=== PATIENT | female | born 1955 | race Caucasian/White ===

== ENCOUNTER → 2020-01-18 07:41 | Outpatient (CLI) | payer OTHER, SELFPAY ==
[2020-01-18 08:09] LABS: Add Manual Diff / Slide Review NO; Basophils Absolute Auto 0 /uL (0-100); Basophils Percent Auto 0.5 % (0-2); Eosinophils Absolute Auto 100 /uL (0-450); Eosinophils Percent Auto 1.5 % (2-4); Hematocrit 46.2 % (36-46); Hemoglobin 15.7 g/dL (12.0-16.0); Lymphocytes Absolute Auto 2300 /uL (1100-4500); Lymphocytes Percent Auto 31.8 % (25-40); Mean Corpuscular Hemoglobin 32.9 PG (26-34); Mean Corpuscular Volume 96.8 fL (80-100); Monocytes Absolute Auto 600 /uL (0-900); Monocytes Percent Auto 7.6 % (3-14); Neutrophils Absolute Auto 4300 /uL (1500-7000); Neutrophils Percent Auto 58.6 % (50-75); Platelet Count 265 X10^3/uL (150-400); Red Blood Cell Count 4.77 X10^6/uL (4.0-5.2); Red Cell Distribution Width 13.1 % (11.6-14.8); White Blood Cell Count 7.3 X10^3/uL (4.5-11.0)
[2020-01-18 08:24] LABS: Alanine Aminotransferase 72 IU/L (<35); Albumin 4.7 g/dL (3.5-5.0); Albumin Globulin Ratio 1.7 (1.0-2.8); Alkaline Phosphatase 68 U/L (38-126); Aspartate Aminotransferase 46 IU/L (14-36); BUN Creatinine Ratio 23.4 (6-22); Bilirubin Total 0.6 mg/dL (0.2-1.3); Blood Urea Nitrogen 25 mg/dL (7-17); Carbon Dioxide 35 mmol/L (22-32); Chloride 96 mmol/L (98-107); Cholesterol 237 mg/dL (140-199); Globulin 2.8 g/dL (1.7-4.1); Glucose 103 mg/dL (80-110); HDL Cholesterol 92 mg/dL (40-60); LDL Cholesterol Calculated 120 mg/dL (<100); Potassium 3.5 mmol/L (3.4-5.1); Sodium 138 mmol/L (137-145); Total Protein 7.5 g/dL (6.3-8.2); Triglycerides 123 mg/dL (35-150)
[2020-01-18 08:40] LABS: Free T3, Triiodothyronine Free 3.58 pg/mL (2.77-5.27); Free T4, Direct Thyroxine 1.06 ng/dL (0.78-2.19)
[2020-01-18 08:42] LABS: Vitamin D 25 Hydroxy (D3) 38.1 ng/mL (30.0-100.0)
[2020-01-18 08:53] LABS: Thyroid Stimulating Hormone 4.25 uIU/mL (0.47-4.68)
[2020-01-18 09:13] LABS: Vitamin B12 900 pg/mL (239-931)
== END ==
PROVIDERS: Family Provider Family Medicine; PCP Family Medicine; Referring Provider Family Medicine; Visit Provider Family Medicine
DX: Z12.31 Encounter for screening mammogram for malignant neoplasm of breast (principal); Z13.220 Encounter for screening for lipoid disorders; E04.9 Nontoxic goiter, unspecified; E55.9 Vitamin D deficiency, unspecified; F32.9 Major depressive disorder, single episode, unspecified; R53.83 Other fatigue; R94.6 Abnormal results of thyroid function studies
CPT/HCPCS: 36415; 80053; 80061; 82306; 82607; 84439; 84443; 84481; 85025

== ENCOUNTER → 2020-04-18 08:58 | Outpatient (CLI) | payer OTHER, SELFPAY ==
[2020-04-18 10:40] LABS: Alanine Aminotransferase 30 IU/L (<35); Albumin 3.9 g/dL (3.5-5.0); Albumin Globulin Ratio 1.9 (1.0-2.8); Alkaline Phosphatase 48 U/L (38-126); Aspartate Aminotransferase 27 IU/L (14-36); BUN Creatinine Ratio 23.2 (6-22); Bilirubin Total 0.7 mg/dL (0.2-1.3); Blood Urea Nitrogen 19 mg/dL (7-17); Calcium 9.2 mg/dL (8.4-10.2); Carbon Dioxide 30 mmol/L (22-32); Chloride 101 mmol/L (98-107); Cholesterol 173 mg/dL (140-199); Estimated Glomerular Filt Rate > 60.0 mL/min (>60); Globulin 2.1 g/dL (1.7-4.1); Glucose 83 mg/dL (80-110); HDL Cholesterol 69 mg/dL (40-60); HEMOLYSIS < 15 (0-50); LDL Cholesterol Calculated 86 mg/dL (<100); Potassium 4.3 mmol/L (3.4-5.1); Sodium 136 mmol/L (137-145); Triglycerides 91 mg/dL (35-150)
== END ==
PROVIDERS: Family Provider Family Medicine; PCP Family Medicine; Referring Provider Family Medicine; Visit Provider Family Medicine
DX: E78.5 Hyperlipidemia, unspecified (principal); I10 Essential (primary) hypertension; N18.3 Chronic kidney disease, stage 3 (moderate); R74.0 Nonspecific elevation of levels of transaminase and lactic acid dehydrogenase [LDH]
CPT/HCPCS: 36415; 80053; 80061

== ENCOUNTER → 2020-05-10 15:43 | Outpatient (CLI) | payer OTHER, SELFPAY ==
--- NOTE | 2020-05-10 15:44 | DI.RAD.S_ITS ---
PROCEDURE: XR CHEST 2V INDICATIONS: pre-op testing TECHNIQUE: 2 views of the chest were acquired. COMPARISON: [facility], , CHEST 2 VIEW, 12/05/2014, 16:55. FINDINGS: Surgical changes and devices: None. Lungs and pleura: Lungs are clear. No pleural effusions or pneumothorax. Mediastinum: Mediastinal contours are normal. Heart size is normal. Bones and chest wall: No suspicious bony abnormalities. Soft tissues appear unremarkable. IMPRESSION: Normal for age, no contraindication to operative intervention is found. Dictated by: Brenton Mendoza M.D. on 05/10/2020 at 16:26 Approved by: Brenton Mendoza M.D. on 05/10/2020 at 16:31
== END ==
PROVIDERS: Family Provider Family Medicine; PCP Family Medicine; Referring Provider Nurse Practitioner Family; Visit Provider Nurse Practitioner Family
DX: Z01.818 Encounter for other preprocedural examination (principal)
CPT/HCPCS: 71046; 81001

== ENCOUNTER → 2020-05-10 16:07 | Outpatient (CLI) | payer OTHER, SELFPAY ==
[2020-05-10 18:56] LABS: Bacteria Urine None Seen
[2020-05-10 19:01] LABS: Appearance Urine UA CLOUDY; Bilirubin Urine UA NEGATIVE (NEGATIVE); Color Urine UA YELLOW; Glucose Urine UA NEGATIVE (Negative); Ketones Urine UA TRACE (NEGATIVE); Leukocyte Esterase Urine UA NEGATIVE (NEGATIVE); Nitrite Urine UA NEGATIVE (Negative); Occult Blood Urine UA NEGATIVE (Negative); Protein Urine UA NEGATIVE (Negative); Specific Gravity Urine UA 1.025 (1.000-1.035); Urobilinogen Urine UA 0.2 E.U./dL (0.2)
[2020-05-10 19:11] LABS: RBC Urine 0-1/HPF (0-5/HPF); Squamous Epithelial Cell Urine 5-10 /HPF (0-5/HPF); Transitional Epi Cells Urine 1-5/HPF (0-5/HPF); WBC Urine 0-1/HPF (0-5/HPF)
[2020-05-10 19:37] LABS: Culture Indicated Urine Cult Not Indicated
== END ==
PROVIDERS: Family Provider Family Medicine; PCP Family Medicine; Visit Provider Nurse Practitioner Family
DX: Z01.818 Encounter for other preprocedural examination (principal)
CPT/HCPCS: 81001

== ENCOUNTER → 2020-05-15 10:39 | Outpatient (CLI) | payer OTHER, SELFPAY ==
[2020-05-15 12:25] LABS: Hematocrit 44.3 % (36-46); Hemoglobin 15.4 g/dL (12.0-16.0); Mean Corpuscular HGB Conc 34.8 % (30-36); Mean Corpuscular Hemoglobin 34.6 PG (26-34); Mean Corpuscular Volume 99.3 fL (80-100); Platelet Count 252 X10^3/uL (150-400); Red Blood Cell Count 4.46 X10^6/uL (4.0-5.2); Red Cell Distribution Width 12.6 % (11.6-14.8); White Blood Cell Count 5.5 X10^3/uL (4.5-11.0)
[2020-05-15 12:45] LABS: Alanine Aminotransferase 49 IU/L (<35); Albumin 4.4 g/dL (3.5-5.0); Albumin Globulin Ratio 1.7 (1.0-2.8); Alkaline Phosphatase 58 U/L (38-126); Aspartate Aminotransferase 45 IU/L (14-36); BUN Creatinine Ratio 30.7 (6-22); Bilirubin Total 0.7 mg/dL (0.2-1.3); Blood Urea Nitrogen 27 mg/dL (7-17); Calcium 9.4 mg/dL (8.4-10.2); Carbon Dioxide 36 mmol/L (22-32); Chloride 101 mmol/L (98-107); Estimated Glomerular Filt Rate > 60.0 mL/min (>60); Globulin 2.6 g/dL (1.7-4.1); Glucose 88 mg/dL (80-110); HEMOLYSIS 20 (0-50); Sodium 139 mmol/L (137-145)
== END ==
PROVIDERS: Family Provider Family Medicine; PCP Family Medicine; Referring Provider Nurse Practitioner Family; Visit Provider Nurse Practitioner Family
DX: Z01.818 Encounter for other preprocedural examination (principal); R94.31 Abnormal electrocardiogram [ECG] [EKG]
CPT/HCPCS: 36415; 80053; 85027

== ENCOUNTER → 2020-05-17 06:48 | Outpatient (CLI) | payer OTHER, SELFPAY ==
--- NOTE | 2020-05-17 07:07 | DI.ECHO.S_ITS ---
Echocardiogram Report + + :Name: PATTI RUBI Study Date: 05/17/2020 Height: 65 in : :[facility] Weight: 175 lb : : Gender: Female BSA: 1.9 m2 : :: 1955 Age: 64 yrs BP: 142/58 mmHg: :Reason For Study: Possible Anterior Ischemia, T-Wave Inversion : :Ordering Physician: KEYLA, : :SHAYY Performed By: Raquel Nova : :Referring: SHAYY RAMIRES : + + Interpretation Summary This was a technically difficult study requiring Definity echocontrast. Echocontrast was c/b back pain as a side effect to echocontrast., HR was 55-62 bpm during exam. Normal LV size and wall thickness. There is subtle septal and mid-inferior hypokinesis. EF is 55-60%. Normal chamber sizes. Mild AI. Mild MAC with mild associated MR. No prior study available for comparison. Procedure: A two-dimensional transthoracic echocardiogram with color flow and Doppler was performed. A contrast injection of Definity was performed to improve assessment of LV function. Patient developed severe back pain which radiated to left arm after the use of Definity contrast. Rapid response was called and patient was treated by the Emergency Department. Contrast was injected into an intravenous site in the left arm. The patient was in sinus bradycardia with heart rates between 51-60 bpm during the exam. Left Ventricle: The left ventricle is normal in size and wall thickness. The ejection fraction is estimated to be 55-60%. Diastolic function could not be accurately assessed due to contradictory data. Right Ventricle: The right ventricle is normal in size and function. Atria: Both atria are normal in size. There is no Doppler evidence for an interatrial shunt. Mitral Valve: There is mild mitral annular calcification. The mitral valve leaflets appear mildly thickened, but open well. There is mild mitral regurgitation. Aortic Valve: The aortic valve is trileaflet. The aortic valve opens well. There is no aortic valve stenosis. There is mild to moderate aortic regurgitation. Tricuspid Valve: The tricuspid valve is normal in structure and function. There is mild tricuspid regurgitation. Pulmonary artery pressures cannot be estimated because of the lack of a measurable TR jet velocity but the IVC suggests a CVP of around 3 mmHg. Pulmonic Valve: The pulmonic valve is normal in structure and function. There is trace pulmonic regurgitation. Great Vessels: The aortic root is normal size. The ascending aorta is mildly enlarged. The IVC is of normal diameter and collapses greater than 50% with a sniff. This suggests a low right atrial pressure of 3 mm Hg. Pericardium/ Pleura There is no pericardial effusion. There is no pleural effusion. MMode/2D Measurements & Calculations LVIDd: 5.2 cm LVOT diam: 2.0 cm LVIDs: 3.8 cm Ao root diam: 3.2 cm FS: 28.0 % asc Aorta Diam: 3.5 cm EPSS: 1.5 cm Ao Arch Diam (Prox Trans): 3.1 cm IVSd: 0.84 cm LVPWd: 0.76 cm LV serrato. diameter/BSA (cm/m^2): 2.8 LV sys. diameter/BSA (cm/m^2): 2.0 LA A2 area: 17.9 cm2 RA long axis: 4.2 cm LA A4 area: 18.7 cm2 RA area: 14.7 cm2 LA length (vol): 5.4 cm RA vol: 43.6 ml LA vol: 52.9 ml RA : 23.3 ml/m2 LA vol index: 28.3 ml/m2 IVC diam: 1.6 cm RVD1 (basal): 3.4 cm TAPSE: 1.8 cm Doppler Measurements & Calculations Ao V2 max: 128.8 cm/sec LVOT Max David: 73.2 cm/sec Ao V2 mean: 86.2 cm/sec LV V1 max P.1 mmHg Ao max P.6 mmHg LV V1 VTI: 17.9 cm Ao mean P.4 mmHg DALLAS(I,D): 1.8 cm2 Ao V2 VTI: 32.5 cm DALLAS(V,D): 1.8 cm2 sev ratio: 0.55 DALLAS indexed to BSA (cm^2/m^2): 0.95 AI P1/2t: 629.9 msec AI dec slope: 212.9 cm/sec2 MV E max david: 74.9 cm/sec PA V2 max: 70.1 cm/sec MV A max david: 105.5 cm/sec PA V2 mean: 47.5 cm/sec MV E/A: 0.71 PA mean P.0 mmHg Med Peak E' David: 4.4 cm/sec PA pr(Accel): 39.6 mmHg E/E' med: 16.9 Lat Peak E' David: 5.5 cm/sec E/E' lat: 13.7 E/e' average: 15.3 MV dec time: 0.33 sec SV(LVOT): 57.7 ml Electronically signed by: Xenia Monroe M.D. on [place] Physician:05/17/2020 05:52 PM
== END ==
PROVIDERS: Family Provider Family Medicine; PCP Family Medicine; Referring Provider Nurse Practitioner Family; Visit Provider Nurse Practitioner Family
DX: I08.3 Combined rheumatic disorders of mitral, aortic and tricuspid valves (principal); I77.89 Other specified disorders of arteries and arterioles; R94.31 Abnormal electrocardiogram [ECG] [EKG]
CPT/HCPCS: 93010; C8929; Q9957

== ENCOUNTER 2020-05-17 08:25 | Emergency (ER) | payer OTHER, SELFPAY ==
[2020-05-17] VITALS (11 sets, daily range): BP systolic 123–180; BP diastolic 64–88; PULSE 50–62; RESP 10–23; TEMP 35.7; O2SAT 97–99; BMI 29.1
--- NOTE | 2020-05-17 08:50 | ED_ITS ---
HPI - Allergic Reaction General Chief complaint: Allergic Reaction Stated complaint: allergic reaction Time Seen by Provider: 05/17/20 08:33 Source: patient, family and other Mode of arrival: Wheelchair Limitations: no limitations History of Present Illness HPI narrative: Patient in radiology department having outpatient echocardiogram with infusion of definity compound. Had immediate back pain radiating to the l eft arm. No syncope. No new numbness tingling weakness no diaphoresis no dyspnea. Symptoms resolved immediately with Benadryl. This is 1 of the common adverse reactions is back/renal pain, however reactions like this may indicate underlying unstable cardiopulmonary conditions. Pamphlet about definity available from echocardiogram department. Patient was here for medical clearance for foot surgery in 2 weeks. Family physician had provided echocardiogram testing today and then stress test next week. Will contact pharmacy department that dispenses this medication to the echocardiogram dep artment as far as half-life of common bile. It is a lipid. Patient family history significant for coronary disease. Currently patient has no complaints. Valet Attendant has been paged to review for this compound/chemical Related Data Home Medications Medication Instructions Recorded Confirmed meloxicam 15 mg tablet 15 mg PO DAILY PRN 11/16/19 05/10/20 omeprazole 20 mg capsule,delayed 20 mg PO DAILY 11/16/19 05/10/20 release thyroid (pork) 30 mg tablet 30 mg PO DAILY 11/16/19 05/10/20 Previous Rx's Medication Instructions Recorded estradiol 1 gram VAG DAILY #42.5 gram 11/16/19 handicap placard #1 ea 01/03/20 duloxetine 30 mg capsule,delayed 30 mg PO DAILY #90 cap 01/21/20 release sprinkle estradiol 0.05 mg/24 hr weekly 1 patch TRANSDERMAL QWEEK #4 each 01/21/20 transdermal patch venlafaxine 100 mg tablet 100 mg PO DAILY #90 tab 01/21/20 bisoprolol fumarate 10 mg tablet 10 mg PO BID #60 tab 02/01/20 lorazepam 1 mg tablet 1 mg PO DAILY PRN #30 tab 03/13/20 indapamide 2.5 mg tablet 2.5 mg PO QAM #90 tab 04/19/20 trazodone 100 mg tablet 100 mg PO BEDTIME PRN #90 tab 04/19/20 Allergies Allergy/AdvReac Type Severity Reaction Status Date / Time doxycycline [DOXYCYCLINE] Allergy Severe ANAPHYLAXIS Verified 05/17/20 10:51 losartan [LOSARTAN] Allergy Severe ANAPHYLAXIS Verified 05/17/20 10:51 diclofenac [DICLOFENAC] Allergy Mild RASH Verified 05/17/20 10:51 hydrocodone [HYDROCODONE] Allergy Mild RASH Verified 05/17/20 10:51 morphine [MORPHINE] Allergy Mild ITCHING Verified 05/17/20 10:51 perflutren [From Definity] Allergy Unknown Cramping Verified 05/17/20 10:51 of the Muscles Review of Systems Review of Systems Narrative: GENERAL: Denies chills, fatigue, malaise, fever, sweats. HEENT: Denies sinus pain, ear pain, sore throat, difficulty swallowing, dizziness. RESPIRATORY: Denies dyspnea, cough, wheezing, hemoptysis, sputum. CARDIOVASCULAR: Denies chest pain, palpitations, orthopnea, edema, GASTROINTESTINAL: Denies nausea, vomiting, abdominal pain, diarrhea, constipation, melena. : Denies dysuria, frequency, incontinence, hematuria, urinary retention. MUSCULOSKELETAL: denies weakness, joint pain, or bony pain. Complains of back muscular spasm SKIN: Denies rash, skin lesions, or other NEUROLOGIC: Denies weakness, headache, numbness, change in speech, confusion, seizures, incoordination. PSYCHIATRIC: No concerning psychosocial issues. ROS Unobtainable: All systems reviewed & are unremarkable except as noted in HPI and below Patient History Medical History Abnormal EKG (Acute) Anxiety (Chronic) Cardiac arrhythmia (Chronic) Cervical somatic dysfunction (Chronic) Chicken pox (Resolved ~1962) CKD (chronic kidney disease), stage III (Acute) Cranial somatic dysfunction (Chronic) Depression (Chronic 03/11/14) Endometriosis (Resolved) Fibroids (Resolved) Fibromyalgia (Chronic) Greater trochanteric bursitis of both hips (Acute) Heavy menstrual period (Resolved) Hot flashes due to menopause (Acute) Hyperlipidemia (Acute) Hypertension (Chronic ~2015) Iliotibial band syndrome, right leg (Acute) Infertility (Resolved) Insomnia disorder (Chronic) IT band syndrome (Acute) Measles (Resolved ~1963) Lauren's neuroma of left foot (Acute) Mumps (Resolved ~1969) Painful menstrual periods (Resolved) Pelvic somatic dysfunction (Chronic) Plantar fasciitis of left foot (Acute) Preoperative testing (Acute) Restless leg syndrome (Chronic ~2018) Sacroiliac joint stiffness (Acute) Segmental and somatic dysfunction of abdomen and other regions (Acute) Segmental and somatic dysfunction of lower extremity (Acute) Segmental and somatic dysfunction of lumbar region (Acute) Segmental and somatic dysfunction of rib cage (Acute) Segmental and somatic dysfunction of thoracic region (Acute) Somatic dysfunction of lower extremity (Acute) Somatic dysfunction of spine, sacral (Acute) Stiffness of neck (Acute) Transaminitis (Acute) Surgical History Anesthesia (Resolved) History of breast augmentation History of esophagogastroduodenoscopy (EGD) (08/04/15) History of tonsillectomy Status post biopsy (08/04/15) Status post vaginal hysterectomy (~2006) Family History Father CAD (coronary artery disease) Hyperlipidemia Hypertension Bowel obstruction Grandfather Diabetes mellitus Stroke Mother CVA (cerebral infarction) Hypertension Substance abuse Chronic mental illness History of heart disease Mental health problem Stroke Grandmother History of heart disease Sister Atrial fibrillation Social History Smoking Status: Never smoker Smoking Status: Never smoker alcohol intake frequency: 0-2 drinks per day Alcohol type: wine Substance Use Type: does not use Exam Narrative Exam Narrative: GENERAL: patient appears stated age. Well-nourished, well- developed patient, in no distress, not toxic HEAD: Atraumatic. Normocephalic. EYES: Pupils equal round and reactive. Extraocular motions intact. No scleral icterus. No injection or drainage. ENT: Nose without bleeding, purulent drainage. Throat without erythema, tonsillar hypertrophy or exudate. Airway patent. NECK: Trachea midline. Non tender CARDIOVASCULAR: Regular rate and rhythm without murmurs, gallops, or rubs. Strong bilateral carotid/radial and posterior tibial pulses. RESPIRATORY: Clear to auscultation. Breath sounds equal bilaterally. No wheezes, rales, or rhonchi. GASTROINTESTINAL: Abdomen soft, non-tender, nondistended. EXTREMITIES: No edema or joint tenderness. BACK: Nontender without deformity or crepitance. No flank tenderness. NEURO: AOx3. Clear speech no facial droop light touch intact to bilateral face and hands and legs. 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 SKIN: No rash or erythema of visible areas, no diaphoresis, skin is dry warm soft and pink PSYCH: Not anxious, is cooperative Initial Vital Signs Initial Vital Signs: Vital Signs Temperature 96.2 F L 05/17/20 08:34 Pulse Rate 54 L 05/17/20 08:34 Respiratory Rate 16 05/17/20 08:34 Blood Pressure 177/84 H 05/17/20 08:34 Pulse Oximetry 98 05/17/20 08:34 Course Course Course Narrative: No new complaints since being transferred to the emergency department. Vital signs have improved. Remains pain free. Orders Ordered: ED Orders 05/17/20 12:05 Troponin & CK Cardiac Panel Stat Discontinued Medications Famotidine (Pepcid) 20 mg in 50 mls @ 200 mls/hr IV NOW ONE Stop: 05/17/20 09:01 Last Infusion: 05/17/20 09:20 Dose: 0 mls/hr Documented by: Admin: 05/17/20 09:05 Dose: 200 mls/hr Documented by: MARCELA Reevaluation(s) Reevaluation #1: No new complaints. Second troponin normal. Patient desires discharge home. No complications or new pains or complaints Time: 12:38 Consultations Consultation #1: All spoke with Pharmacy in patient at this hospital. The half- life is 1.3 minutes of definity. Completely gone in 5 minutes Time: 09:09 Consultation #2: s/w dr fry, online marketing specialist. Patient can be discharged home. Likely allergic reaction. Patient had no previous chest pain dyspnea before testing. No cardiopulmonary complaints prior to outpatient test. Patient has follow-up with stress test next week. Appropriate for discharge home. Time: 09:50 Consultation #3: Received call from Dr. Monroe, she has reviewed the echocardiogram portion that was completed. She has reviewed the EKGs faxed to her. She understands patient has already been discharged has recommended by online marketing specialist on-call Time: 17:44 Vital Signs Vital signs: Vital Signs - 8 hr 05/17/20 10:30 05/17/20 11:00 05/17/20 11:30 Pulse Rate 58 L 62 60 Respiratory Rate 11 L 17 13 Blood Pressure 129/68 133/64 128/72 Pulse Oximetry 05/17/20 12:00 05/17/20 12:16 Pulse Rate 59 L 60 Respiratory Rate 20 11 L Blood Pressure 123/66 143/76 H Pulse Oximetry 98 MDM - Allergic Reaction Lab Data Result diagrams: 05/17/20 08:20 05/17/20 08:20 Labs: Lab Results 05/17/20 05/17/20 05/17/20 Range/Units 08:20 08:20 08:20 WBC 4.7 (4.5-11.0) X10^3/uL RBC 4.48 (4.0-5.2) X10^6/uL Hgb 15.1 (12.0-16.0) g/dL Hct 43.9 (36-46) % MCV 98.1 (80-100) fL MCH 33.8 (26-34) PG MCHC 34.4 (30-36) % RDW 12.8 (11.6-14.8) % Plt Count 213 (150-400) X10^3/uL Neut % (Auto) 60.7 (50-75) % Lymph % (Auto) 31.9 (25-40) % Parke % (Auto) 4.3 (3-14) % Eos % (Auto) 1.2 L (2-4) % Baso % (Auto) 1.9 (0-2) % Neut # (Auto) 2900 (9897-8897) /uL Lymph # (Auto) 1500 (8360-3493) /uL Parke # (Auto) 200 (0-900) /uL Eos # (Auto) 100 (0-450) /uL Baso # (Auto) 100 (0-100) /uL PT 10.2 (10.1-12.7) SECONDS INR 0.9 (0.9-1.3) APTT 30 (26.4-36.2) SECONDS Sodium 135 L (137-145) mmol/L Potassium 3.6 (3.4-5.1) mmol/L Chloride 97 L (98-107) mmol/L Carbon Dioxide 32 (22-32) mmol/L BUN 18 H (7-17) mg/dL Creatinine 0.85 (0.52-1.04) mg/dL Estimated GFR > 60.0 (>60) mL/min BUN/Creatinine Ratio 21.2 (6-22) Glucose 95 (80-110) mg/dL Calcium 9.5 (8.4-10.2) mg/dL Total Bilirubin 0.6 (0.2-1.3) mg/dL AST 33 (14-36) IU/L ALT 39 H (<35) IU/L Alkaline Phosphatase 61 (38-126) U/L Total Creatine Kinase (30-135) U/L CK-MB (CK-2) CK-MB (CK-2) Rel Index Troponin I < 0.012 (0.01-0.034) ng/mL Total Protein 6.9 (6.3-8.2) g/dL Albumin 4.4 (3.5-5.0) g/dL Globulin 2.5 (1.7-4.1) g/dL Albumin/Globulin Ratio 1.8 (1.0-2.8) 07/15/20 Range/Units 12:05 WBC (4.5-11.0) X10^3/uL RBC (4.0-5.2) X10^6/uL Hgb (12.0-16.0) g/dL Hct (36-46) % MCV (80-100) fL MCH (26-34) PG MCHC (30-36) % RDW (11.6-14.8) % Plt Count (150-400) X10^3/uL Neut % (Auto) (50-75) % Lymph % (Auto) (25-40) % Parke % (Auto) (3-14) % Eos % (Auto) (2-4) % Baso % (Auto) (0-2) % Neut # (Auto) (4141-9470) /uL Lymph # (Auto) (5083-0269) /uL Parke # (Auto) (0-900) /uL Eos # (Auto) (0-450) /uL Baso # (Auto) (0-100) /uL PT (10.1-12.7) SECONDS INR (0.9-1.3) APTT (26.4-36.2) SECONDS Sodium (137-145) mmol/L Potassium (3.4-5.1) mmol/L Chloride (98-107) mmol/L Carbon Dioxide (22-32) mmol/L BUN (7-17) mg/dL Creatinine (0.52-1.04) mg/dL Estimated GFR (>60) mL/min BUN/Creatinine Ratio (6-22) Glucose (80-110) mg/dL Calcium (8.4-10.2) mg/dL Total Bilirubin (0.2-1.3) mg/dL AST (14-36) IU/L ALT (<35) IU/L Alkaline Phosphatase (38-126) U/L Total Creatine Kinase 29 L (30-135) U/L CK-MB (CK-2) TNP CK-MB (CK-2) Rel Index TNP Troponin I < 0.012 (0.01-0.034) ng/mL Total Protein (6.3-8.2) g/dL Albumin (3.5-5.0) g/dL Globulin (1.7-4.1) g/dL Albumin/Globulin Ratio (1.0-2.8) Imaging Data Chest x-ray: Radiologist's Impression: [address] [address] XRay Report Signed Patient: Prisca Zavala LMR#: [id number] : 7Acct:[id number] Age/Sex: 64 / FDate of Service: 05/17/20 Loc: ED Accession Number: [id number] Procedure: XR chest 1V Ordering Provider: Dallas Boss MD PROCEDURE: XR CHEST 1V INDICATIONS: chest pain TECHNIQUE: One view of the chest was acquired. COMPARISON: [facility], , XR CHEST 2V, 05/10/2020, 15:38. FINDINGS: Surgical changes and devices: None. Lungs and pleura: Lungs are clear. No pleural effusions or pneumothorax. Mediastinum: Mediastinal contours appear normal. Heart size is normal. Bones and chest wall: No suspicious bony lesions. Overlying soft tissues appear unremarkable. IMPRESSION: No evidence acute pulmonary process. Dictated by: Silvestre Delcid M.D. on 05/17/2020 at 9:15 Approved by: Silvestre Delcid M.D. on 05/17/2020 at 9:15 ECG Data Attestation: I personally reviewed and interpreted this ECG as follows: Interpretation: Sinus bradycardia no ST elevation ventricular rate 52 MDM Narrative Medical decision making narrative: Appropriate for discharge home. Reviewed patient case with online marketing specialist. Likely allergic reaction. No recent chest pain or dyspnea or cardio complaints prior to outpatient testing. Patient has outpatient stress test next week. No continue allergic medications indicated. Definity compound has very short half-life less than 1.3 minutes. Out of system within 5 minutes Symptoms likely not aortic dissection. No syncope. No diaphoresis. Strong pulses. Left arm discomfort may have been just from the spasming affect of the back. At time of discharge feels small amount of back spasm but not nearly so painful as onset. No neuro complaints on time of discharge. Discharge Plan Departure Patient Disposition: Home Clinical Impression: Allergic reaction caused by a drug Qualifiers: Encounter type: initial encounter Qualified Code(s): T78.40XA - Allergy, unspecified, initial encounter Discharge Date/Time: 05/17/20 12:51 Instructions: DI for Adverse Drug Reaction -- Allergic Activity Restrictions/Additional Instructions: Be sure to inform your family doctor your allergy to this chemical compounds/drug use this morning called [employer]. See your family doctor before your stress test next week. Return if worse or if any questions or concerns. Prescriptions: No Action (DME) handicap placard Qty: 1 RF: 0 estradiol 0.05 mg/24 hr patch weekly 1 patch transdermal QWEEK Qty: 4 RF: 11 bisoprolol fumarate 10 mg tablet 10 mg PO BID Qty: 60 RF: 5 lorazepam 1 mg tablet 1 mg PO DAILY PRN (Reason: anxiety) Qty: 30 RF: 0 indapamide 2.5 mg tablet 2.5 mg PO QAM Qty: 90 RF: 0 trazodone 100 mg tablet 100 mg PO BEDTIME PRN (Reason: insomnia) Qty: 90 RF: 0 venlafaxine 100 mg tablet 100 mg PO DAILY Qty: 90 RF: 1 duloxetine 30 mg capsule, delayed rel sprinkle 30 mg PO DAILY Qty: 90 RF: 1 thyroid (pork) [[place] Thyroid] 30 mg tablet 30 mg PO DAILY RF: 0 omeprazole 20 mg capsule,delayed release(DR/EC) 20 mg PO DAILY RF: 0 meloxicam 15 mg tablet 15 mg PO DAILY PRNRF: 0 estradiol [Estrace] 0.01 % (0.1 mg/gram) cream 1 gram VAG DAILY Qty: 42.5 RF: 1 Referrals: Emigdio Mares DO [Primary Care Provider] -
[2020-05-17 09:00] LABS: Add Manual Diff / Slide Review NO; Basophils Absolute Auto 100 /uL (0-100); Basophils Percent Auto 1.9 % (0-2); Eosinophils Absolute Auto 100 /uL (0-450); Eosinophils Percent Auto 1.2 % (2-4); Hematocrit 43.9 % (36-46); Hemoglobin 15.1 g/dL (12.0-16.0); Lymphocytes Absolute Auto 1500 /uL (1100-4500); Lymphocytes Percent Auto 31.9 % (25-40); Mean Corpuscular HGB Conc 34.4 % (30-36); Mean Corpuscular Hemoglobin 33.8 PG (26-34); Mean Corpuscular Volume 98.1 fL (80-100); Monocytes Absolute Auto 200 /uL (0-900); Monocytes Percent Auto 4.3 % (3-14); Neutrophils Absolute Auto 2900 /uL (1500-7000); Neutrophils Percent Auto 60.7 % (50-75); Platelet Count 213 X10^3/uL (150-400); Red Blood Cell Count 4.48 X10^6/uL (4.0-5.2); Red Cell Distribution Width 12.8 % (11.6-14.8); White Blood Cell Count 4.7 X10^3/uL (4.5-11.0)
[2020-05-17 09:02] LABS: INR 0.9 (0.9-1.3); Prothrombin Time 10.2 SECONDS (10.1-12.7)
[2020-05-17 09:05] LABS: PTT Partial Thromboplastin Tim 30 SECONDS (26.4-36.2)
[2020-05-17] MEDS: FAMOTIDINE 20 MG/50 ML PIGGYBACK 200 MG IV (09:05)
[2020-05-17 09:06] LABS: Albumin 4.4 g/dL (3.5-5.0); Albumin Globulin Ratio 1.8 (1.0-2.8); Alkaline Phosphatase 61 U/L (38-126); Aspartate Aminotransferase 33 IU/L (14-36); BUN Creatinine Ratio 21.2 (6-22); Bilirubin Total 0.6 mg/dL (0.2-1.3); Blood Urea Nitrogen 18 mg/dL (7-17); Calcium 9.5 mg/dL (8.4-10.2); Carbon Dioxide 32 mmol/L (22-32); Chloride 97 mmol/L (98-107); Estimated Glomerular Filt Rate > 60.0 mL/min (>60); Globulin 2.5 g/dL (1.7-4.1); Glucose 95 mg/dL (80-110); HEMOLYSIS < 15 (0-50); Potassium 3.6 mmol/L (3.4-5.1); Sodium 135 mmol/L (137-145); Total Protein 6.9 g/dL (6.3-8.2)
[2020-05-17 09:18] LABS: Troponin I < 0.012 ng/mL (0.01-0.034)
[2020-05-17 12:26] LABS: Creatine Kinase 29 U/L (30-135)
[2020-05-17 12:39] LABS: Troponin I < 0.012 ng/mL (0.01-0.034)
[2020-05-17 15:06] LABS: Alanine Aminotransferase 39 IU/L (<35)
== END 2020-05-17 12:51 | disposition home or self-care (01) ==
PROVIDERS: Emergency Provider Emergency Medicine; Family Provider Family Medicine; PCP Family Medicine
DX: T78.40XA Allergy, unspecified, initial encounter (principal); R07.9 Chest pain, unspecified; I08.3 Combined rheumatic disorders of mitral, aortic and tricuspid valves; I77.89 Other specified disorders of arteries and arterioles; R94.31 Abnormal electrocardiogram [ECG] [EKG]
CPT/HCPCS: 36415; 71045; 80053; 82550; 84484; 85025; 85610; 85730; 93005; 96374; 99284; C8929; J1200; Q9957

== ENCOUNTER → 2020-05-18 11:44 | Outpatient (CLI) | payer OTHER, SELFPAY | PROVIDERS: Family Provider Family Medicine; PCP Family Medicine; Visit Provider Nurse Practitioner Family | DX: N89.8 Other specified noninflammatory disorders of vagina (principal) | CPT/HCPCS: 87210 ==

== ENCOUNTER → 2020-05-20 11:29 | Outpatient (CLI) | payer OTHER, SELFPAY ==
[2020-05-21 22:55] LABS: COVID19 Sendout Not Detected (Not Detect)
== END ==
PROVIDERS: Family Provider Family Medicine; PCP Family Medicine; Visit Provider Physician Assistant
DX: Z01.812 Encounter for preprocedural laboratory examination (principal)
CPT/HCPCS: 87635

== ENCOUNTER → 2020-05-23 09:31 | Outpatient (CLI) | payer OTHER, SELFPAY ==
--- NOTE | 2020-05-23 | DI.NM.S_ITS ---
PROCEDURE: NM CHHAYA PERF SPECT R&S PHARM Rest and pharmacological stress myocardial perfusion SPECT with gated imaging and ejection fraction RADIOPHARMACEUTICAL: 12.3 mCi Tc-99m tetrafosmin IV at rest and 26.8 mCi Tc-99m tetrafosmin IV at peak effect of pharmacological stress. [id number] was performed. INDICATIONS: Abnormal electrocardiogram [ECG] [EKG] TECHNIQUE: Radiopharmaceutical was injected at peak stress test, and also at rest. SPECT images were obtained. SPECT myocardial perfusion images were displayed in short axis, horizontal long axis, and vertical long axis views. Gated images were reviewed using Roam[employer] software. COMPARISON: None. CARDIAC STRESS: A pharmacologic stress test was performed under the supervision of an attending staff, using an infusion of lexiscan 0.4mg IV X1. Hemodynamic data: There is normal blood pressure and heart rate response to pharmacologic stress. Symptoms: The patient denied anginal chest pain. Aminophylline: none EKG: Resting ECG shows sinus rhythm and non-specific T wave changes. No diagnostic changes of ischemia with lexiscan; rare PVCs at rest. FINDINGS: Raw data: There is good myocardial uptake of radiotracer. No significant motion artifacts. Yboy-eu-mchbm ratio is 0.22 (normal is less than 0.38 for tetrafosmin tracer). Left ventricle function: Gated images demonstrate normal left ventricular wall thickening. No segmental wall motion abnormalities. No transient ischemic dilation; TID is 0.93 (normal less than 1.3). Left ventricle resting end diastolic volume is 120 mL. Left ventricle stress ejection fraction is 71%; normal range is above 45%. Myocardial perfusion: There is a moderately intense fixed defect in the anterior wall and the apex at rest that improves in the anterior wall post stress but persists in the apex, suggesting prior infarct but no ischemia. Prone images make defect worse. Of note, the perfusion defects can be artifacts as the patient has breast implants per report.. IMPRESSION: Abnormal nuclear stress test consistent with possible prior infarction. No ischemia. 1) There is a moderately intense fixed defect in the anterior wall and the apex at rest that improves in the anterior wall post stress but persists in the apex, suggesting prior infarct but no ischemia. Prone images make defect worse. Of note, the perfusion defects can be artifacts as the patient has breast implants per report. 2) Normal left ventricular size, wall motion, and systolic function (EF post stress 71%). 3) No ECG evidence of ischemia. 4) No angina during the study. 5) No prior echo available for comparison. Dictated by: Regulo Jaeger MD on 05/23/2020 at 17:37 Approved by: Regulo Jaeger MD on 05/23/2020 at 17:41
--- NOTE | 2020-05-23 14:45 | PM.TREADMILL ---
Cardiac Stress Test Report Referral & Results Date Patient Seen: 05/23/20 Requesting provider: Viri Claudio Rest ECG: Unremarkable Procedure Note: After both written and verbal informed consent the patient had an IV started by the diagnostic imaging RN and then was hooked up to the treadmill monitoring system. The patient was placed on the treadmill at 1 mile an hour with no elevation and was then injected with the Bree scan material. The Cardiolite was then immediately administered. The patient spent an additional 2-3 minutes on the treadmill before being returned to the [facility] in the supine position. The patient had a normal response to all infused materials. Impression: See perfusion imaging report for details regarding possible ischemia Please note: Actual ECG tracings can be found in the PACS system.
== END ==
PROVIDERS: Family Provider Family Medicine; PCP Family Medicine; Referring Provider Nurse Practitioner Family; Visit Provider Nurse Practitioner Family
DX: R94.31 Abnormal electrocardiogram [ECG] [EKG] (principal)
CPT/HCPCS: 78452; 93016; 93017; 93018; A9502; J2785

== ENCOUNTER → 2020-06-28 10:59 | Outpatient (CLI) | payer OTHER, SELFPAY ==
--- NOTE | 2020-06-28 11:13 | DI.MG.S_ITS ---
Patient Name: PATTI RUBI date: 1955 Sex: F Attending Physician: Vishnu Indications: Date: 06/28/2020 11:03 At the request of: MAXIM AGUIRRE Procedure: MM screening mammo implant BI BILATERAL DIGITAL SCREENING MAMMOGRAM 3D/2D WITH CAD WITH AUGMENTATION: 06/28/2020 CLINICAL: Routine screening. Comparison is made to exams dated: 08/03/2015 mammogram, 02/03/2014 mammogram - [facility], and 11/21/2011 mammogram - [facility]. The tissue of both breasts is heterogeneously dense. This may lower the sensitivity of mammography. Current study was also evaluated with a Computer Aided Detection (CAD) system. Bilateral breast implants are stable. No significant masses, calcifications, or other findings are seen in either breast. There has been no significant interval change. IMPRESSION: NEGATIVE There is no mammographic evidence of malignancy. A 1 year screening mammogram is recommended. This exam was interpreted at Station ID: [id number]. NOTE: For mammograms, a report in lay terms will be sent to the patient. Approximately 15% of breast malignancies will not be visualized mammographically. In the management of a palpable breast mass, a negative mammogram must not discourage biopsy of a clinically suspicious lesion. Electronically Signed By: Michael faye/dottie:06/28/2020 11:54:42 letter sent: Normal Exam ACR BI-RADS Category 1: Negative 3341F Continued Report - Page 2 of 2 Patient Name: PATTI RUBI date: 1955 Sex: F Attending Physician: Vishnu Indications: Date: 06/28/2020 11:03 At the request of: MAXIM AGUIRRE Procedure: MM screening mammo implant BI
== END ==
PROVIDERS: Family Provider Family Medicine; PCP Family Medicine; Referring Provider Family Medicine; Visit Provider Family Medicine
DX: Z12.31 Encounter for screening mammogram for malignant neoplasm of breast (principal)
CPT/HCPCS: 77063; 77067

== ENCOUNTER → 2020-07-27 15:06 | Outpatient (CLI) | payer OTHER, SELFPAY ==
--- NOTE | 2020-07-27 15:07 | DI.RAD.S_ITS ---
PROCEDURE: XR HIP W PEL IF DONE RT 2V INDICATIONS: PAIN OF RIGHT HIP TECHNIQUE: AP pelvis with lateral view(s) of the right hip(s). COMPARISON: None. FINDINGS: Bones: Subchondral cystic changes are present at the right acetabulum. No deformity of the femoral head. No fracture or dislocation. Soft tissues: The visualized bowel gas pattern is normal. No suspicious soft tissue calcifications. IMPRESSION: Right hip osteoarthritis. Dictated by: Bianca Post M.D. on 07/27/2020 at 16:38 Approved by: Bianca Post M.D. on 07/27/2020 at 16:39
== END ==
PROVIDERS: Family Provider Family Medicine; PCP Family Medicine; Referring Provider Family Medicine; Visit Provider Family Medicine
DX: M25.551 Pain in right hip (principal); M16.11 Unilateral primary osteoarthritis, right hip; G89.29 Other chronic pain
CPT/HCPCS: 73502

== ENCOUNTER → 2020-08-10 14:35 | Outpatient (CLI) | payer OTHER, SELFPAY ==
--- NOTE | 2020-08-10 | DI.RAD.S_ITS ---
PROCEDURE: XR FOOT LT MIN 3V INDICATIONS: plantar fascitis of left foot TECHNIQUE: 3 views of the foot were acquired. COMPARISON: [facility], CR, XR FOOT 3+ VIEWS LEFT, 06/07/2020, 9:25. FINDINGS: Bones: No fractures or dislocations. Normal calcaneal pitch. Postoperative changes are redemonstrated in the distal 2nd and 3rd metatarsals. No suspicious bony lesions. There is mild calcaneal spurring. Soft tissues: No tibiotalar joint effusion. Achilles tendon appears normal. IMPRESSION: Stable postoperative change. Normal calcaneal pitch. Mild calcaneal spurring. Dictated by: Bianca Post M.D. on 08/10/2020 at 16:29 Approved by: Bianca Post M.D. on 08/10/2020 at 16:30
--- NOTE | 2020-08-10 14:39 | DI.RAD.S_ITS ---
PROCEDURE: XR HIP W PEL IF DONE LT 2V INDICATIONS: pain TECHNIQUE: 2 views of the hip were acquired. COMPARISON: [facility], CR, XR HIP W PEL IF DONE RT 2V, 07/27/2020, 15:17. FINDINGS: Bones: No fractures or dislocations. No suspicious bony lesions. The visualized pelvic ring appears intact. Soft tissues: No suspicious soft tissue calcifications or masses. IMPRESSION: No acute radiographic findings. If there is continued pain, followup exam or additional imaging such as MRI or CT could be performed for further assessment. Dictated by: Bianca Post M.D. on 08/10/2020 at 16:29 Approved by: Bianca Post M.D. on 08/10/2020 at 16:29
== END ==
PROVIDERS: Family Provider Family Medicine; PCP Family Medicine; Referring Provider Podiatrist; Visit Provider Podiatrist
DX: M72.2 Plantar fascial fibromatosis (principal); M77.32 Calcaneal spur, left foot; M25.552 Pain in left hip; G89.29 Other chronic pain
CPT/HCPCS: 73502; 73630

== ENCOUNTER → 2020-09-22 08:38 | Outpatient (CLI) | payer OTHER, SELFPAY ==
--- NOTE | 2020-09-22 | DI.MRI.S_ITS ---
PROCEDURE: MR HIP RT WO CON INDICATIONS: Pain in unspecified hip TECHNIQUE: Noncontrast coronal T1 spin echo and STIR through the bony pelvis. Coronal and axial T2 fast spin echo with fat saturation, sagittal T1 spin echo, and oblique axial T2 fast spin echo with fat saturation through the hip. COMPARISON: [facility], CR, XR HIP W PEL IF DONE LT 2V, 08/10/2020, 14:41. FINDINGS: Image quality: Excellent. Bones and joints: No fracture identified. Sacroiliac joints are unremarkable in signal intensity. There is lower lumbar spondylosis and facet arthropathy. No pathologic hip joint effusion. No evidence of osteonecrosis. Subchondral cystic change and sclerosis at the right hip joint. Diffuse loss of the normal marrow fat signal intensity throughout the pelvis, which could reflect chronic anemia versus other marrow infiltrative process. Tendons and ligaments: Minimal gluteus medius and minimus insertional tendinopathy. Proximal iliotibial band intact. Iliopsoas tendon intact. Origin of the hamstring tendon mildly thickened and low-grade T2 hyperintensity/edema. The straight and reflected heads of the rectus femoris muscle origin appear intact Ligamentum teres appears intact where visualized. Labrum: Ill-defined fraying of the anterosuperior labrum which could be age appropriate. The alpha angle of the femur is within normal limits at less than 55 degrees. Soft tissues: Visualized muscles demonstrate normal bulk and internal signal. Quadratus femoris muscle normal. Proximal sciatic neurovascular bundle appears normal adjacent to the hamstring tendons. No free pelvic fluid. Bladder normal. Genitourinary structures and bowel loops appear normal where visualized. IMPRESSION: Mild right hip joint degeneration Minimal gluteus medius and minimus insertional tendinopathy Age-indeterminate mild hamstring origin tendinopathy Ill-defined fraying of the anterosuperior labrum, which could be age appropriate degeneration. Diffusely decreased marrow fat signal intensity throughout the bony pelvis, which could reflect chronic anemia although cannot exclude other marrow infiltrative processes and recommend clinical correlation/follow-up. Dictated by: Earle Lees M.D. on 09/22/2020 at 10:16 Approved by: Earle Lees M.D. on 09/22/2020 at 10:24
== END ==
PROVIDERS: Family Provider Family Medicine; PCP Family Medicine; Referring Provider Orthopaedic Surgery; Visit Provider Orthopaedic Surgery
DX: M25.551 Pain in right hip (principal); M16.11 Unilateral primary osteoarthritis, right hip
CPT/HCPCS: 73721

== ENCOUNTER → 2020-10-23 10:28 | Outpatient (CLI) | payer OTHER, SELFPAY | PROVIDERS: Family Provider Family Medicine; PCP Family Medicine; Referring Provider Orthopaedic Surgery; Visit Provider Orthopaedic Surgery | DX: M21.851 Other specified acquired deformities of right thigh (principal); Z53.8 Procedure and treatment not carried out for other reasons ==

== ENCOUNTER → 2025-03-17 12:26 | Outpatient (CLI) | payer MEDICARE, BC, SELFPAY ==
[2025-03-17 13:35] LABS: Add Manual Diff / Slide Review NO; Basophils Absolute Auto 0 /uL (0-100); Basophils Percent Auto 0.7 % (0-2); Eosinophils Absolute Auto 100 /uL (0-450); Eosinophils Percent Auto 1.9 % (2-4); Hematocrit 43.5 % (36-46); Lymphocytes Absolute Auto 2100 /uL (1100-4500); Lymphocytes Percent Auto 30.1 % (25-40); Mean Corpuscular HGB Conc 34.5 % (30-36); Mean Corpuscular Hemoglobin 33.4 PG (26-34); Mean Corpuscular Volume 96.9 fL (80-100); Monocytes Absolute Auto 500 /uL (0-900); Monocytes Percent Auto 6.8 % (3-14); Neutrophils Absolute Auto 4200 /uL (1500-7000); Neutrophils Percent Auto 60.5 % (50-75); Platelet Count 275 X10^3/uL (150-400); Red Blood Cell Count 4.49 X10^6/uL (4.0-5.2); Red Cell Distribution Width 13.8 % (11.6-14.8)
[2025-03-17 13:53] LABS: Alanine Aminotransferase 92 IU/L (<35); Albumin 4.6 g/dL (3.5-5.0); Albumin Globulin Ratio 2.1 (1.0-2.8); Alkaline Phosphatase 65 U/L (38-126); Aspartate Aminotransferase 63 IU/L (14-36); Bilirubin Total 0.7 mg/dL (0.2-1.3); Blood Urea Nitrogen 26 mg/dL (7-17); C-Reactive Protein Quant 0.7 mg/dL (<1.0); Calcium 9.9 mg/dL (8.4-10.2); Carbon Dioxide 30 mmol/L (22-32); Chloride 96 mmol/L (98-107); Cholesterol 221 mg/dL (140-199); Estimated Glomerular Filt Rate > 60 mL/min (>60); Globulin 2.2 g/dL (1.7-4.1); Glucose 88 mg/dL (70-99); HDL Cholesterol 59 mg/dL (40-60); HEMOLYSIS < 15 (0-50); LDL Cholesterol Calculated 126 mg/dL (<100); Potassium 3.7 mmol/L (3.4-5.1); Sodium 134 mmol/L (137-145); Total Protein 6.8 g/dL (6.3-8.2); Triglycerides 179 mg/dL (35-150)
[2025-03-17 14:20] LABS: TSH w/ Reflex to FT4 3.24 uIU/mL (0.47-4.68)
[2025-03-17 14:40] LABS: Vitamin B12 693 pg/mL (239-931)
[2025-03-17 15:06] LABS: Erythrocyte Sedimentation Rate 2 MM/HR (0-20)
== END ==
PROVIDERS: Family Provider Family Medicine; PCP Family Medicine; Referring Provider Family Medicine; Visit Provider Family Medicine
DX: E03.9 Hypothyroidism, unspecified (principal); M79.7 Fibromyalgia; E78.5 Hyperlipidemia, unspecified; N18.30 Chronic kidney disease, stage 3 unspecified; I12.9 Hypertensive chronic kidney disease with stage 1 through stage 4 chronic kidney disease, or unspecified chronic kidney disease
CPT/HCPCS: 36415; 80053; 80061; 82607; 84443; 85025; 85651; 86140

== ENCOUNTER → 2025-04-20 14:35 | Outpatient (CLI) | payer MEDICARE, BC, SELFPAY ==
--- NOTE | 2025-04-20 14:40 | DI.RAD.S_ITS ---
PROCEDURE: XR HAND LT MIN 3V INDICATIONS: hand pain TECHNIQUE: 3 views of the left hand/wrist acquired. COMPARISON: [facility], CR, XR HAND RT MIN 3V, 04/20/2025, 13:46. FINDINGS: Bones: No fractures or dislocations. Carpal bones are normally aligned. Severe osteoarthritis of the 1st carpometacarpal joint No suspicious bony lesions. Soft tissues: No suspicious soft tissue calcifications. IMPRESSION: Severe 1st CMC joint osteoarthritis of the left hand and wrist. Dictated by: Mayank Blanton M.D. on 04/20/2025 at 16:05 Approved by: Mayank Blanton M.D. on 04/20/2025 at 16:06
--- NOTE | 2025-04-20 14:40 | DI.RAD.S_ITS ---
PROCEDURE: XR HAND RT MIN 3V INDICATIONS: hand pain TECHNIQUE: 3 views of the right hand/wrist acquired. COMPARISON: None. FINDINGS: Bones: No fractures or dislocations. Carpal bones are normally aligned. Severe 1st carpometacarpal joint osteoarthritis and moderate triscaphe osteoarthritis. Otherwise, no suspicious bony lesions. Soft tissues: No suspicious soft tissue calcifications. IMPRESSION: Severe osteoarthritis of the 1st carpometacarpal joint and moderate osteoarthritis of the triscaphe joint of the right wrist and hand. Dictated by: Mayank Blanton M.D. on 04/20/2025 at 15:57 Approved by: Mayank Blanton M.D. on 04/20/2025 at 16:05
== END ==
PROVIDERS: PCP Family Medicine; Referring Provider Family Medicine; Visit Provider Family Medicine
DX: M18.0 Bilateral primary osteoarthritis of first carpometacarpal joints (principal); M19.032 Primary osteoarthritis, left wrist; M19.031 Primary osteoarthritis, right wrist; M19.041 Primary osteoarthritis, right hand; M79.641 Pain in right hand; M79.642 Pain in left hand; M79.645 Pain in left finger(s); M79.644 Pain in right finger(s); G89.29 Other chronic pain
CPT/HCPCS: 73130

== ENCOUNTER 2025-06-06 16:03 | Emergency (ER) | payer MEDICARE, BC, SELFPAY ==
[2025-06-06] VITALS (9 sets, daily range): BP systolic 98–147; BP diastolic 54–80; PULSE 70–89; RESP 18–28; TEMP 37.5; O2SAT 90–98; BMI 32.5
[2025-06-06] MEDS: ONDANSETRON 4 MG/2 ML INJ IV (16:26)
[2025-06-06 17:02] LABS: Add Manual Diff / Slide Review NO; Hematocrit 49.7 % (36-46); Hemoglobin 17.1 g/dL (12.0-16.0); Lymphocytes Absolute Auto 2500 /uL (1100-4500); Mean Corpuscular HGB Conc 34.5 % (30-36); Mean Corpuscular Hemoglobin 33.5 PG (26-34); Mean Corpuscular Volume 97.1 fL (80-100); Platelet Count 341 X10^3/uL (150-400)
[2025-06-06 17:12] LABS: Alanine Aminotransferase 58 IU/L (<35); Albumin 4.6 g/dL (3.5-5.0); Albumin Globulin Ratio 1.7 (1.0-2.8); Alkaline Phosphatase 52 U/L (38-126); Blood Urea Nitrogen 13 mg/dL (7-17); Calcium 9.8 mg/dL (8.4-10.2); Carbon Dioxide 30 mmol/L (22-32); Chloride 94 mmol/L (98-107); Estimated Glomerular Filt Rate > 60 mL/min (>60); Globulin 2.7 g/dL (1.7-4.1); Glucose 113 mg/dL (70-99); HEMOLYSIS 35 (0-50); Lipase 72 U/L (23-300); Potassium 3.0 mmol/L (3.4-5.1); Sodium 134 mmol/L (137-145); Total Protein 7.3 g/dL (6.3-8.2)
[2025-06-06 17:33] LABS: Influenza A - CEPHEID Flu A NEGATIVE (NEGATIVE); Influenza B - CEPHEID Flu B NEGATIVE (NEGATIVE)
--- NOTE | 2025-06-06 17:57 | EKG_ITS ---
[address] [address] Test Date: 2025-06-06 Pat Name: Prisca Barahona Department: Room: Gender: Female Receiving Room Clerk: YO : 1955 Requested By: Order Number: [id number] Reading MD: Fidel Christy Measurements Intervals [place] Rate: 76 P: 19 WA: 158 QRS: 2 QRSD: 90 T: 22 QT: 412 QTc: 463 Interpretive Statements Normal sinus rhythm Inferior Q waves. Electronically Signed On 06-11-2025 7:48:51 PDT by Fidel Christy
--- NOTE | 2025-06-06 18:32 | ED.NAVMDI ---
HPI - Nausea/Vomiting/Diarrhea General Chief complaint: Nausea/Vomiting/Diarrhea Stated complaint: vomiting stomach pains Time Seen by Provider: 06/06/25 16:11 Source: patient Mode of arrival: Ambulatory History of Present Illness HPI Narrative: 69-year-old female with recent nausea and vomiting diarrhea, worse yesterday, today no longer having emesis or diarrhea but has generalized fatigue, concerned that she might be dehydrated. Denies chest pain shortness of breath. Denies recent antibiotic exposure. No callus contact to persons with similar symptoms. Related Data Home Medications ?Medication ?Instructions ?Recorded ?Confirmed omeprazole 20 mg capsule,delayed 20 mg PO DAILY 11/16/19 06/01/25 release bisoprolol fumarate 10 mg tablet 5 mg PO DAILY 03/17/25 06/01/25 cholecalciferol (vitamin D3) 125 125 mcg PO DAILY 03/17/25 06/01/25 mcg (5,000 unit) capsule levothyroxine 13 mcg capsule 0.05 mcg PO DAILY 03/17/25 06/01/25 multivitamin-ferrous 1 tab PO DAILY 03/17/25 06/01/25 fumarate-folic acid 18 mg-400 mcg tablet (Centrum Complete) Previous Rx's ?Medication ?Instructions ?Recorded handicap placard #1 ea 01/03/20 Disabled Parking Permit #1 ea 05/25/20 trazodone 100 mg tablet See Rx Instructions .Route 10/23/21 .COMPLEX #180 tabs indapamide 2.5 mg tablet 2.5 mg PO QAM #90 tabs 10/24/21 lorazepam 1 mg tablet 1.5 mg (1.5 x 1 mg) PO BEDTIME #45 03/22/25 tabs tirzepatide 2.5 mg/0.5 mL 2.5 mg (0.5 mL) SUBCUT QWEEK SUSAN 03/22/25 subcutaneous pen injector on CPAP, weight loss, BMI 32 #2 mL venlafaxine 150 mg tablet,extended 150 mg PO DAILY #90 tabs 03/22/25 release 24 hr venlafaxine 37.5 mg 37.5 mg PO DAILY #90 caps 03/22/25 capsule,extended release 24 hr diclofenac sodium 3 % topical gel 1 applic topical BID #100 grams 05/10/25 gabapentin 100 mg capsule 200 mg (2 x 100 mg) PO 3XD PRN as 05/10/25 needed for fibromyalgia #180 caps zaleplon 5 mg capsule 5 mg PO BEDTIME PRN sleep #90 caps 05/30/25 Allergies Allergy/AdvReac Type Severity Reaction Status Date / Time doxycycline (DOXYCYCLINE) Allergy Severe ANAPHYLAXIS Verified 06/06/25 16:16 losartan (LOSARTAN) Allergy Severe ANAPHYLAXIS Verified 06/06/25 16:16 hydrocodone (HYDROCODONE) Allergy Mild RASH Verified 06/06/25 16:16 morphine (MORPHINE) Allergy Mild ITCHING Verified 06/06/25 16:16 perflutren (From Definity) Allergy Unknown Cramping Verified 06/06/25 16:16 of the Muscles Patient History Medical History (Updated 06/06/25 @ 21:12 by Sacha Mcrae MD) Rib pain on left side Insomnia secondary to anxiety Fecal incontinence Osteoarthritis Bilateral hand pain Chronic pain of left thumb Insomnia secondary to chronic pain Upper extremity somatic dysfunction Chronic pain of right thumb Medication review performed Pubic bone pain Abnormal serum iron level Elevated testosterone level in female Acute bilateral low back pain with left-sided sciatica Weight loss counseling, encounter for Chronic right-sided thoracic back pain Acute right-sided low back pain without sciatica Night terrors, adult Chronic left hip pain Chronic right hip pain Joint stiffness of toe of left foot Skin change Hammertoe of left foot Abrasion Yeast infection of the vagina Abnormal EKG Preoperative testing Segmental and somatic dysfunction of lower extremity IT band syndrome Lauren's neuroma of left foot Transaminitis Hyperlipidemia Hot flashes due to menopause Stiffness of neck Greater trochanteric bursitis of both hips Segmental and somatic dysfunction of rib cage Segmental and somatic dysfunction of abdomen and other regions Somatic dysfunction of lower extremity Somatic dysfunction of spine, sacral Pelvic somatic dysfunction Segmental and somatic dysfunction of lumbar region Segmental and somatic dysfunction of thoracic region Cervical somatic dysfunction Cranial somatic dysfunction Sacroiliac joint stiffness Iliotibial band syndrome, right leg Anxiety Restless leg syndrome (~2018) Mumps (~1970) Measles (~1963) Chicken pox (~1962) Painful menstrual periods Infertility Heavy menstrual period Fibroids Endometriosis Hypertension (~2015) Cardiac arrhythmia Insomnia disorder Fibromyalgia Plantar fasciitis of left foot Depression (03/11/14) Surgical History Anesthesia History of esophagogastroduodenoscopy (EGD) (08/04/15) Status post biopsy (08/04/15) History of tonsillectomy History of breast augmentation Status post vaginal hysterectomy (~2006) Family History Father CAD (coronary artery disease) Hyperlipidemia Hypertension Bowel obstruction Grandfather Diabetes mellitus Stroke Mother CVA (cerebral infarction) Hypertension Substance abuse Chronic mental illness History of heart disease Mental health problem Stroke Grandmother History of heart disease Sister Atrial fibrillation Social History Smoking Status: Never smoker Smoking Status: Never smoker alcohol intake frequency: 0-2 drinks per day Alcohol type: wine Exam Narrative Exam Narrative: GENERAL: Well-developed patient, in mild distress. HEAD: Atraumatic. Normocephalic. EYES: Pupils equal round and reactive. Extraocular motions intact. No scleral icterus. No injection or drainage. ENT: Nose without bleeding, purulent drainage. No obvious facial trauma. Airway patent. NECK: Trachea midline. Non tender CARDIOVASCULAR: Regular rate and rhythm without murmurs, gallops, or rubs. RESPIRATORY: Clear to auscultation. Breath sounds equal bilaterally. No wheezes, rales, or rhonchi. GASTROINTESTINAL: Abdomen soft, non-tender, nondistended. EXTREMITIES: No edema or joint tenderness. BACK: Nontender without deformity or crepitance. No flank tenderness. NEURO: AOx3. Motor functions grossly nonfocal. SKIN: No rash or erythema of visible areas Initial Vital Signs Initial Vital Signs: Vital Signs Temperature 99.5 F 06/06/25 16:14 Pulse Rate 89 06/06/25 16:14 Respiratory Rate 18 06/06/25 16:14 Blood Pressure 139/80 06/06/25 16:14 Oxygen Delivery Method Room Air 06/06/25 16:14 Course Orders Ordered: Discontinued Medications Dicyclomine HCl (Dicyclomine 10 Mg Capsule) 20 mg PO NOW ONE Stop: 06/06/25 20:26 Last Admin: 06/06/25 21:08 Dose: Not Given Documented By: Hydromorphone HCl (Hydromorphone Hcl 0.5 Mg/0.5 Ml Syringe) 0.5 mg IV NOW ONE Stop: 06/06/25 18:43 Last Admin: 06/06/25 18:59 Dose: 0.5 mg Documented By: DEVYN Hydromorphone HCl (Hydromorphone Hcl 0.5 Mg/0.5 Ml Syringe) 0.5 mg IV NOW ONE Stop: 06/06/25 20:15 Last Admin: 06/06/25 20:27 Dose: 0.5 mg Documented By: POTASSIUM CHLORIDE IN WATER (Potassium Cl 10 Meq/100 Ml Carisa) 10 meq in 100 mls @ 100 mls/hr IV Q1H OUMAR Stop: 06/06/25 20:44 Last Admin: 06/06/25 20:26 Dose: 100 mls/hr Documented By: Infusion: 06/06/25 19:59 Dose: Infused Documented By: Admin: 06/06/25 18:59 Dose: 100 mls/hr Documented By: DEVYN Sodium Chloride (Normal Saline 0.9%) 1,000 mls @ 125 mls/hr IV CONT [facility] Last Admin: 06/06/25 18:58 Dose: 125 mls/hr Documented By: DEVYN Ondansetron HCl (Ondansetron 4 Mg/2 Ml Inj) 4 mg IV NOW PRN PRN Reason: Nausea And Vomiting Last Admin: 06/06/25 16:26 Dose: 4 mg Documented By: JOSELITO Ondansetron HCl (Ondansetron 4 Mg Odt) 4 mg PO NOW PRN PRN Reason: Nausea And Vomiting Ondansetron HCl (Ondansetron 4 Mg Odt Prepack) 1 bottle MISC DIRECTED ONE Stop: 06/06/25 21:08 Last Admin: 06/06/25 22:37 Dose: 1 bottle Documented By: ALICIA Potassium Chloride (Potassium Chloride 20 Meq/15 Ml Udc) 40 meq PO NOW ONE Stop: 06/06/25 21:08 Last Admin: 06/06/25 22:35 Dose: Not Given Documented By: ALICIA Potassium Chloride (Potassium Chloride 20 Meq Tab) 40 meq PO NOW ONE Stop: 06/06/25 21:15 Last Admin: 06/06/25 21:48 Dose: 40 meq Documented By: ALICIA Vital Signs Vital signs: Vital Signs - 8 hr 06/06/25 21:15 06/06/25 21:30 06/06/25 21:33 Pulse Rate 74 70 71 Respiratory Rate 26 H 23 28 H Blood Pressure Pulse Oximetry 96 90 L 97 Oxygen Delivery Method Room Air Room Air Room Air 06/06/25 21:33 06/06/25 22:00 06/06/25 22:00 Pulse Rate 73 Respiratory Rate 25 H Blood Pressure 98/54 L 113/60 Pulse Oximetry 94 Oxygen Delivery Method Room Air MDM - Nausea/Vomiting/Diarrhea Lab Data Attestation: I reviewed the patient's lab results. Lab results narrative: White blood cell count 75021, hemoglobin 17.1, platelets adequate. Glucose 113. Normal renal function. Serum CO2 30, potassium 3.0 low, sodium 134 slightly low. Initial urinalysis contaminated, repeat urinalysis negative. COVID influenza RSV negative. 06/06/25 16:40 06/06/25 16:40 Labs: Lab Results 06/06/25 06/06/25 06/06/25 Range/Units 16:40 18:03 19:37 WBC 11.2 H (4.5-11.0) X10^3/uL RBC 5.12 (4.0-5.2) X10^6/uL Hgb 17.1 H (12.0-16.0) g/dL Hct 49.7 H (36-46) % MCV 97.1 (80-100) fL MCH 33.5 (26-34) PG MCHC 34.5 (30-36) % RDW 13.0 (11.6-14.8) % Plt Count 341 (150-400) X10^3/uL Neut % (Auto) 70.5 (50-75) % Lymph % (Auto) 21.9 L (25-40) % Jerome % (Auto) 6.5 (3-14) % Eos % (Auto) 0.5 L (2-4) % Baso % (Auto) 0.6 (0-2) % Neut # (Auto) 7900 H (3329-7386) /uL Lymph # (Auto) 2500 (6295-9573) /uL Jerome # (Auto) 700 (0-900) /uL Eos # (Auto) 100 (0-450) /uL Baso # (Auto) 100 (0-100) /uL Sodium 134 L (137-145) mmol/L Potassium 3.0 L (3.4-5.1) mmol/L Chloride 94 L (98-107) mmol/L Carbon Dioxide 30 (22-32) mmol/L BUN 13 (7-17) mg/dL Creatinine 0.85 (0.52-1.04) mg/dL Estimated GFR > 60 (>60) mL/min BUN/Creatinine Ratio 15.3 (6-22) Glucose 113 H (70-99) mg/dL Calcium 9.8 (8.4-10.2) mg/dL Total Bilirubin 1.0 (0.2-1.3) mg/dL AST 40 H (14-36) IU/L ALT 58 H (<35) IU/L Alkaline Phosphatase 52 (38-126) U/L Total Protein 7.3 (6.3-8.2) g/dL Albumin 4.6 (3.5-5.0) g/dL Globulin 2.7 (1.7-4.1) g/dL Albumin/Globulin Ratio 1.7 (1.0-2.8) Lipase 72 (23-300) U/L Urine RBC None seen 0-1/hpf (0-5/HPF) Urine WBC 0-1/hpf None seen (0-5/HPF) Ur Squamous Epith Cells >30 /hpf H 1-5 /hpf D (0-5/HPF) Urine Bacteria Few (2-10) H None seen (None) Ur Culture Indicated? Cult not indicated Cult not indicated Vol Urine Centrifuged 10ml (spun) 10ml (spun) SARS-CoV-2 (PCR) Negative (Negative) Influenza A (RT-PCR) Flu a negative (NEGATIVE) Influenza B (RT-PCR) Flu b negative (NEGATIVE) RSV (PCR) Negative (Negative) Urine Dip Bedside Urine Glucose Negative Bedside Urine Bilirubin + 1 Bedside Urine Ketone - Negative Urine Specific [place] 1.010 Bedside Urine Occult Blood - Negative Bedside Urine pH 7.0 Bedside Urine Protein +/- 15 Bedside Urine Urobilinogen - Negative Bedside Urine Nitrite - Negative Bedside Urine Leukocytes - Negative Esterase Imaging Data CT scan - abdomen/pelvis: Radiologist's Impression: [address] [address] [address] Scan Report Signed Patient: Prisca Rubi MR#: [id number] : 1955 Acct:[id number] Age/Sex: 69 / F Date of Service: 06/06/25 Loc: ED Accession Number: [id number] Procedure: CT abdomen pelvis w con Ordering Provider: Sacha Mcrae MD PROCEDURE: CT ABDOMEN PELVIS W CON INDICATIONS: abd pain/N/V TECHNIQUE: After the administration of intravenous contrast, axial sections acquired from the lung bases to the pubic symphysis. Coronal and sagittal reformats were performed. For radiation dose reduction, the following was used: automated exposure control, adjustment of mA and/or kV according to patient size. COMPARISON: None. FINDINGS: Image quality: Diagnostic. Lower Chest: No significant findings. ABDOMEN: Liver: Significant diffuse fatty infiltration. No definite focal lesion seen. Gallbladder: No radiopaque gallstones or wall thickening. Biliary ducts: No biliary dilation. Pancreas: No ductal dilation. Spleen: Size is within normal limits. Adrenal Glands: No adrenal nodules. Kidneys and Ureters: No hydronephrosis. No solid mass. No complex renal cystic lesion which requires follow up. Stomach and Bowel: There is no bowel dilatation. There is wall thickening with mural stratification and prominence of the Vasa recta and involving a long segment in the mid to distal ileum. Peritoneum: No abnormal intraperitoneal fluid. No free air. Ventral Wall: No significant ventral hernia. Abdominal Nodes: No retroperitoneal or mesenteric adenopathy by size criteria. Vessels: Aorta and inferior vena cava are normal in size. PELVIS: Pelvic Organs: Post hysterectomy. No adnexal mass seen. Bladder: No bladder wall thickening, accounting for underdistention. Pelvic Nodes: No enlarged lymph nodes. Miscellaneous: No inguinal hernias are seen. Bones: No aggressive osseous abnormality. IMPRESSION: Findings of enteritis involving a long segment in the mid to distal ileum, most likely of inflammatory/infectious etiology. No signs of complications. Dictated by: Drew Marte M.D. on 06/06/2025 at 19:34 Approved by: Drew Marte M.D. on 06/06/2025 at 19:39 ECG Data Attestation: I personally reviewed and interpreted this ECG as follows: Interpretation: 1757, normal sinus rhythm with rate of 76, no obvious ST segment elevation or depression changes. CO 158, QRS 90, QTC 463. [facility] Narrative Medical decision making narrative: 69-year-old female with nausea vomiting diarrhea last couple of days, worse yesterday, today with generalized fatigue and weakness, concerned she might be dehydrated. Screening labs sent. IV fluids, IV antiemetics. Lab data: White blood cell count 76476, hemoglobin 17.1, platelets adequate. Glucose 113. Normal renal function. Serum CO2 30, potassium 3.0 low, sodium 134 slightly low. Initial urinalysis contaminated, repeat urinalysis negative. COVID influenza RSV negative. IV fluids given. Potassium low. IV and oral potassium repletion given. Renal function adequate. CT abdomen and pelvis ordered. CT scan abdomen and pelvis. Shows enteritis changes long segment mid to distal ileum. No obstructive changes. No colitis or diverticulitis changes. See radiology report. IV fluids and electrolyte repletion. Patient felt better. She wants to go home. Home with . Consider repeat potassium level in follow up with PCP. Return precautions discussed. Discharge Plan Departure Patient Disposition: Home Clinical Impression: Enteritis, Nausea vomiting and diarrhea, Hypokalemia Instructions: DI for Dehydration -- Adult, Nausea and Vomiting-Adult, DI for Enteritis Activity Restrictions/Additional Instructions: Nausea and vomiting and diarrhea predominantly yesterday, with suspected dehydration. IV fluids given. Serum potassium level was low. IV and oral potassium repletion was initiated. Control of nausea with IV medications. Home pack of ondansetron to use to help control nausea. You felt improved. Stool specimen was never collected to run for laboratory testing. CT abdomen and pelvis showed enteritis changes of the ileum small bowel, no obstructive pattern, no large intestine colitis or diverticulitis changes. Ondansetron antinausea medication provided for control of nausea if needed. Consider recheck of your potassium level in follow up. Return to this/nearest emergency department for any change worsening symptoms or any concerns prior. Prescriptions: No Action (DME) handicap placard Qty: 1 0RF Rx Instructions: As directed trazodone 100 mg tablet See Rx Instructions .ROUTE .COMPLEX Qty: 180 1RF Dose Instruction: Take 2 tablets (200 mg) by mouth at bedtime as needed for insomnia. Rx Instructions: Take 2 tablets (200 mg) by mouth at bedtime as needed for insomnia. indapamide 2.5 mg tablet 2.5 mg PO QAM Qty: 90 3RF zaleplon 5 mg capsule 5 mg PO BEDTIME PRN (Reason: sleep) Qty: 90 1RF Rx Instructions: must avoid high-fat meal/food immediately before taking dose (DME) Disabled Parking Permit Qty: 1 0RF Rx Instructions: As directed bisoprolol fumarate 10 mg tablet 5 mg PO DAILY levothyroxine 13 mcg capsule 0.05 mcg PO DAILY Centrum Complete 18-400 mg-mcg tablet 1 tab PO DAILY cholecalciferol (vitamin D3) 125 mcg (5,000 unit) capsule 125 mcg PO DAILY tirzepatide 2.5 mg/0.5 mL pen injector 2.5 mg SUBCUT QWEEK Qty: 2 0RF Rx Instructions: for 4 weeks lorazepam 1 mg tablet 1.5 mg PO BEDTIME Qty: 45 5RF Rx Instructions: 1.5 mg orally bedtime; venlafaxine 150 mg tablet extended release 24hr 150 mg PO DAILY Qty: 90 3RF venlafaxine 37.5 mg capsule,extended release 24hr 37.5 mg PO DAILY Qty: 90 3RF diclofenac sodium 3 % gel 1 applic topical BID Qty: 100 2RF gabapentin 100 mg capsule 200 mg PO 3XD PRN (Reason: as needed for fibromyalgia ) Qty: 180 3RF omeprazole 20 mg capsule,delayed release(DR/EC) 20 mg PO DAILY Referrals: Mejia Mares DO [Primary Care Provider, Family Practice] Stand Alone Forms: Patient Portal/API
[2025-06-06 18:33] LABS: Culture Indicated Urine Cult Not Indicated
[2025-06-06 18:39] LABS: COVID-19 CEPHEID 4-PLEX PCR Negative (Negative)
[2025-06-06] MEDS: SODIUM CHLORIDE 0.9% 1,000 ML 125 ML IV (18:58)
[2025-06-06] MEDS: POTASSIUM CHLORIDE IN WATER 10 MEQ/100 ML PIGGYBACK 100 MEQ IV ×2 (18:59→20:26)
[2025-06-06 20:04] LABS: Culture Indicated Urine Cult Not Indicated
--- NOTE | 2025-06-06 20:10 | PC.NURSE ---
Pt reports pain to right arm. Medicated for pain.
[2025-06-06] MEDS: POTASSIUM CHLORIDE 20 MEQ TAB 40 MEQ PO (21:48)
[2025-06-06] MEDS: ONDANSETRON 4 MG ODT PREPACK 1 BOTTLE MISC (22:37)
== END 2025-06-06 22:39 | disposition home or self-care (01) ==
PROVIDERS: Family Medicine; Emergency Provider Emergency Medicine; PCP Family Medicine
DX: K52.9 Noninfective gastroenteritis and colitis, unspecified (principal); R11.2 Nausea with vomiting, unspecified; E87.6 Hypokalemia
CPT/HCPCS: 36415; 74177; 80053; 81003; 81015; 83690; 85025; 87637; 93005; 96365; 96375; 96376; 99284; J1171; J2405; Q9967

== ENCOUNTER → 2025-09-09 13:55 | Outpatient (CLI) | payer MEDICARE, BC, SELFPAY ==
--- NOTE | 2025-09-09 13:57 | DI.RAD.S_ITS ---
PROCEDURE: XR LUMBAR SPINE 2-3V
== END ==
LOC: RAD 13:57
PROVIDERS: PCP Family Medicine; Referring Provider Family Medicine; Visit Provider Family Medicine
DX: M47.816 Spondylosis without myelopathy or radiculopathy, lumbar region (principal); M54.40 Lumbago with sciatica, unspecified side; G89.29 Other chronic pain
CPT/HCPCS: 72100

== ENCOUNTER → 2025-09-20 10:30 | Outpatient (CLI) | payer MEDICARE, BC, SELFPAY ==
--- NOTE | 2025-09-20 10:31 | DI.MRI.S_ITS ---
PROCEDURE: MR LUMBAR SPINE WO CON INDICATIONS: back pain exacerbation with new sciatica TECHNIQUE: Noncontrast sagittal T1 spin echo and T2 fast echo, sagittal STIR, and T2 fast spin echo through the lumbar spine. In cases with scoliosis, additional coronal T2 fast spin echo may be performed. COMPARISON: None. FINDINGS: Alignment and Curvature: There is normal bony alignment. Bone Marrow: Marrow is of normal overall signal. No acute vertebral body compression fractures. Spinal Cord: Conus medullaris terminates at the L1 level. Visualized cord demonstrates normal signal and size. Paraspinous Soft Tissues: No paravertebral masses. T12-L1: Normal appearance. L1-L2: Normal appearance. L2-L3: Normal appearance. L3-L4: Normal appearance. L4-L5: Arthropathy. No central or foraminal stenosis. L5-S1: Arthropathy. Short high-intensity zone in the posterior annulus reflecting annular fissure or tear. No central or foraminal stenosis. IMPRESSION: Degenerative disc disease and arthropathy without central or foraminal stenosis Approved by: Carlos Madsen M.D. on 09/20/2025 at 11:03
== END ==
PROVIDERS: PCP Family Medicine; Referring Provider Family Medicine; Visit Provider Family Medicine
DX: M51.16 Intervertebral disc disorders with radiculopathy, lumbar region (principal); M47.26 Other spondylosis with radiculopathy, lumbar region; M47.27 Other spondylosis with radiculopathy, lumbosacral region; M54.50 Low back pain, unspecified; G89.29 Other chronic pain
CPT/HCPCS: 72148

== ENCOUNTER → 2025-10-04 15:22 | Outpatient (CLI) | payer MEDICARE, BC, SELFPAY ==
--- NOTE | 2025-10-04 15:23 | DI.MG.S_ITS ---
MM screening mammo implant BI: 10/04/2025. BI-RADS: 2 CLINICAL: 69-year old female for bilateral screening mammogram. Tyrer-Cuzick lifetime risk of 4.0%. No personal or first-degree family history of breast cancer. The patient has bilateral implants. PRIOR EXAMS 03/16/2024, osf 06/28/2020. MAMMOGRAPHY TECHNIQUE: 2D and 3D (tomosynthesis) digital mammographic views obtained, with additional images as needed for full coverage. Current study was also evaluated with a Computer Aided Detection (CAD) system. DENSITY B. There are scattered areas of fibroglandular density. IMPLANTS Breast implants present. MAMMOGRAPHY FINDINGS Bilateral: There are no suspicious masses, calcifications, or other findings in the breast. IMPRESSION: * No evidence of malignancy with benign findings. RECOMMENDATIONS Bilateral * Annual screening mammography. OVERALL ASSESSMENT CATEGORY BI-RADS-2: Benign. The [employer] recommends annual screening mammography beginning at age 40 for women with average risk of breast cancer. ELECTRONICALLY SIGNED: Aditi Dennis M.D. on 10/11/2025 at 11:54:55 PM PT Interpreting Station ID: [id number]
== END ==
LOC: MAMMO 15:23
PROVIDERS: PCP Family Medicine; Referring Provider Family Medicine; Visit Provider Family Medicine
DX: Z12.31 Encounter for screening mammogram for malignant neoplasm of breast (principal); Z98.82 Breast implant status
CPT/HCPCS: 77063; 77067

== ENCOUNTER → 2025-11-02 09:50 | Outpatient (CLI) | payer MEDICARE, BC, SELFPAY ==
[2025-11-02 10:25] LABS: Add Manual Diff / Slide Review NO; Hematocrit 45.3 % (36-46); Hemoglobin 15.9 g/dL (12.0-16.0); Lymphocytes Absolute Auto 2300 /uL (1100-4500); Mean Corpuscular HGB Conc 35.2 % (30-36); Mean Corpuscular Hemoglobin 34.2 PG (26-34); Mean Corpuscular Volume 97.3 fL (80-100); Platelet Count 319 X10^3/uL (150-400)
[2025-11-02 10:43] LABS: Alanine Aminotransferase 58 IU/L (<35); Albumin 4.5 g/dL (3.5-5.0); Albumin Globulin Ratio 1.9 (1.0-2.8); Alkaline Phosphatase 56 U/L (38-126); Blood Urea Nitrogen 19 mg/dL (7-17); Calcium 9.6 mg/dL (8.4-10.2); Carbon Dioxide 33 mmol/L (22-32); Chloride 99 mmol/L (98-107); Estimated Glomerular Filt Rate > 60 mL/min (>60); Globulin 2.4 g/dL (1.7-4.1); Glucose 106 mg/dL (70-99); HEMOLYSIS < 15 (0-50); Potassium 3.8 mmol/L (3.4-5.1); Sodium 139 mmol/L (137-145); Total Protein 6.9 g/dL (6.3-8.2)
[2025-11-02 11:11] LABS: TSH w/ Reflex to FT4 4.36 uIU/mL (0.47-4.68)
== END ==
PROVIDERS: PCP Family Medicine; Referring Provider Family Medicine; Visit Provider Family Medicine
DX: R29.898 Other symptoms and signs involving the musculoskeletal system (principal); E03.9 Hypothyroidism, unspecified; M79.604 Pain in right leg; M79.605 Pain in left leg; F32.9 Major depressive disorder, single episode, unspecified; G47.30 Sleep apnea, unspecified; M79.7 Fibromyalgia; R68.82 Decreased libido; I10 Essential (primary) hypertension
CPT/HCPCS: 80053; 84443; 85025; 85651; 86140